=== PATIENT | male | born 1945 | race Caucasian/White ===

== ENCOUNTER 2020-03-27 10:14 | Emergency (ER) | payer OTHER ==
--- NOTE | 2020-03-27 10:44 | ERPHSYRPT ---
- History of Present Illness Time Seen by Provider: 03/27/20 10:50 Source: patient Exam Limitations: no limitations Physician History: Patient is a 74-year-old male presents to our ED with complaints of pain to the plantar surface of his right foot. Symptoms started approximately 10 days ago. Patient also discoloration of his toes. Patient also experiences pain at night while resting. Pain worse with weightbearing. No trauma. No fever. Patient is a smoker. Symptoms are progressive. Symptoms are mild to moderate intensity. Patient voices no other complaints or concerns at this time. Method of Injury: unknown Occurred: days ago Quality: constant Severity of Pain-Max: moderate Severity of Pain-Current: mild Lower Extremities Pain: foot: right Modifying Factors: Improves With: movement, rest Associated Symptoms: none Allergies/Adverse Reactions: nicotine Allergy (Verified 03/27/20 10:58) Home Medications: Unobtainable 03/27/20 [History] - Review of Systems Constitutional: No Symptoms, No Fever, No Chills Eyes: No Symptoms Ears, Nose, & Throat: No Symptoms Respiratory: No Symptoms, No Cough, No Dyspnea Cardiac: No Symptoms, No Chest Pain, No Edema, No Syncope Abdominal/Gastrointestinal: No Symptoms, No Abdominal Pain, No Nausea, No Vomiting, No Diarrhea Genitourinary Symptoms: No Symptoms, No Dysuria Musculoskeletal: No Symptoms, No Back Pain, No Neck Pain Skin: No Symptoms, No Rash Neurological: No Symptoms, No Dizziness, No Focal Weakness, No Sensory Changes Psychological: No Symptoms Endocrine: No Symptoms Immunological/Allergic: No Symptoms All Other Systems: Reviewed and Negative - Past Medical History Neurological History: No Pertinent History Cardiac History: Hypertension Respiratory History: COPD Endocrine Medical History: No Pertinent History Musculoskeletal History: Arthritis - Nursing Vital Signs Nursing Vital Signs: Initial Vital Signs O2 Sat by Pulse Oximetry 98 03/27/20 10:44 Pain Scale Pain Intensity 3 - Physical Exam General Appearance: no apparent distress, alert Eyes, Ears, Nose, Throat Exam: moist mucous membranes Neck Exam: non-tender, supple Cardiovascular/Respiratory Exam: chest non-tender, normal breath sounds, regular rate/rhythm, no respiratory distress Gastrointestinal/Abdominal Exam: non-tender, guarding Back Exam: normal inspection, No vertebral tenderness Hips Exam: bilateral: non-tender, normal inspection, normal range of motion Legs Exam: bilateral leg: non-tender, normal inspection, normal range of motion, no evidence of injury Knees Exam: bilateral knee: non-tender, normal inspection, normal range of motion, no evidence of injury Ankle Exam: bilateral ankle: non-tender, normal inspection, normal range of motion, no evidence of injury Foot Exam: right foot: pain (Right foot has cyanotic toes at toe #1 3 and 4. There are purpuric areas of the dorsum and lateral borders of the foot as well.), left foot: non-tender, normal inspection, normal range of motion, no evidence of injury Neuro/Tendon Exam: normal sensation, normal motor functions Mental Status Exam: alert, oriented x 3, cooperative Skin Exam: normal color, warm, dry, other (Right foot has cyanotic discoloration of digits 1, 3, 4,. There are patchy areas of purpura at the dorsum and lateral borders of the foot.) SpO2 Interpretation: normal SpO2: 98 O2 Delivery: Room Air - Course Nursing assessment & vital signs reviewed: Yes - Radiology Exams Foot X-ray Interpretation: Teleradiologist Report (Chronic degenerative changes. No fractures or dislocations.) - Radiology Ultrasound Exam Venous Lower Extremity Ultrasound: discussed w/radiologist (Per dragline engineer patient has no DVT. However there is significant calcification of the femoral artery.) Ordered Tests: Active Orders 24 hr Category Date Time Status IV Insertion STAT Care 03/27/20 10:36 Active FOOT (MINIMUM 3 VIEWS) Stat Exams 03/27/20 10:34 Taken VENOUS UNILAT/LIMITED EXTREMIT [US] Stat Exams 03/27/20 10:35 Taken CBC W DIFF Stat Lab 03/27/20 10:47 Received CK (IN-HOUSE) [CK-Creatinine Phosphokinase] Stat Lab 03/27/20 10:47 Completed Lactic Acid Stat Lab 03/27/20 10:36 Ordered UA W/RFX UR CULTURE Stat Lab 03/27/20 10:37 Uncollected Lab/Rad Data: Laboratory Results 03/27/20 Range/Units 10:47 Creatine Kinase 56 (55-170) U/L - Progress Progress: improved Discussed with : Other (Accepts transfer.) Counseled pt/family regarding: lab results, diagnosis, need for follow-up, rad results, smoking cessation - Departure Departure Disposition: Transfer, Extended Care Facility Clinical Impression: Arterial insufficiency, Ischemic toe Critical Care Time: No Critical Care Time(excluding separately billable procedures): Critical 75-104 mins Referrals: HOSPITAL,'[facility] [Primary Care Provider] -
[2020-03-27 11:09] LABS: Absolute Neutrophil Ct (ANC) 2.93 (1.4-6.9); BASOPHIL % 0.4 % (0.0-0.4); Basophil (Absolute #) 0.02 (0-0.4); Eosinophil % 2.4 % (0.00-5.0); Eosinophil (Absolute #) 0.13 (0-0.5); Hematocrit 42.5 % (42-50); Hemoglobin 14.3 gm/dl (12.5-18.0); Lymphocytes % 38.2 % (24.0-44.0); Mean Cell Volume 97.9 fl (78-100); Mean Corpuscular Hemoglobin 32.9 pg (26-32); Mean Corpuscular Hgb Concent. 33.6 g/dl (32-36); Mean Platelet Volume 10.6 fl (7.5-11.0); Monocyte (Absolute #) 0.32 (0.0-1.3); Monocytes % 5.8 % (0.0-12.0); Neutrophil % 53.2 % (36.0-66.0); Platelet Count 273 K/mm3 (150-450); Red Blood Count 4.34 M/mm3 (4.1-5.6); Red Cell Distribution Width 13.4 % (11.5-14.0); White Blood Count 5.5 K/mm3 (4.0-10.5)
[2020-03-27 11:29] VITALS: O2SAT 98
--- NOTE | 2020-03-27 11:35 | XRAY ---
Indication: Purple toes. Cold to touch. Comparison: None 3 nonweightbearing views right foot obtained. No bony, articular, or soft tissue abnormalities.
--- NOTE | 2020-03-27 11:37 | XRAY ---
Indication: Purple toes. Cold to touch. Two-dimensional sonogram and color Doppler imaging of the major venous vessels of the right leg was performed. Comparison: None No thrombus seen in the examined deep venous vessels of the right leg including greater saphenous vein. Veins demonstrate normal compressibility. Venous waveforms are normal with and without augmentation. Incidental moderate scattered arteriosclerotic disease in the common femoral artery. Impression: 1. Right leg negative for DVT. 2. Incidental common femoral arteriosclerotic disease.
[2020-03-27 11:50] VITALS: BP 137/74; PULSE 83
== END 2020-03-27 12:48 ==
LOC: ED 10:14
DX: I77.1 Stricture of artery (principal); M62.272 Nontraumatic ischemic infarction of muscle, left ankle and foot; I10 Essential (primary) hypertension; J44.9 Chronic obstructive pulmonary disease, unspecified; M19.90 Unspecified osteoarthritis, unspecified site
CPT/HCPCS: 36000; 36415; 73630; 82550; 83605; 85025; 93971; 99284; 99291; 99292

== ENCOUNTER 2022-05-13 15:40 | Day surgery (SDC) | payer OTHER ==
[~2022-05-13 15:40] MED LIST: Lactated Ringers 1,000 ML IV ONE
[2022-05-13] MEDS ORDERED: Depo-Medrol 40 MG/ML IM ONE (15:41)
[2022-05-13] MEDS ORDERED: LIDOCAINE HCL 2% 100 MG/5 ML IJ ONE (15:41)
[2022-05-13] MEDS ORDERED: DIPRIVAN 200 MG/20 ML IV ONE (16:50)
--- NOTE | 2022-05-13 18:04 | XRAY ---
Indication: Bilateral SI joint injection. Intraoperative fluoroscopy provided for 16 seconds. 3 digital spot image submitted for interpretation demonstrates posterior needle tip projecting over the expected left and right SI joints. Correlate with intraoperative findings/report.
--- NOTE | 2022-05-14 11:59 | XRAY ---
16 seconds of fluoroscopy was used in surgery for bilateral SI joint injections.
== END 2022-05-13 17:20 | disposition home or self-care (01) ==
LOC: SDC-PAIN 15:40
PROVIDERS: ATTEND Psychiatry & Neurology Pain Medicine
DX: M46.1 Sacroiliitis, not elsewhere classified (principal); Z79.899 Other long term (current) drug therapy
CPT/HCPCS: 27096; 72202; 77002; G0260; 99100; J1030; J2704

== ENCOUNTER 2022-08-31 10:26 | Observation (INO) | payer OTHER ==
[2022-08-31] MEDS ORDERED: solu-MEDROL 125 MG, Sterile H2O 10 ml 2 ML IV ONE ×2 (10:54)
[2022-08-31] MEDS ORDERED: DUONEB 0.5-3 MG/3 ml Neb IH ONE ×2 (10:55→11:00)
[2022-08-31] MEDS ORDERED: ROCEPHIN 2 Gm-D5w 50ML BAG** 2 G/50 ML IVPB IV STA (10:57)
[2022-08-31] MEDS ORDERED: Zithromax 500 MG/ 250 ML NaCl Premix 500 MG/250 ML IVPB IV STA (10:57)
[2022-08-31] MEDS ORDERED: Sterile H2O 10 ml IJ ONE ×2 (10:59→21:05)
[2022-08-31] MEDS ORDERED: solu-MEDROL ONE ×2 (10:59→21:04)
--- NOTE | 2022-08-31 11:19 | ERPHSYRPT ---
- History of Present Illness Time Seen by Provider: 08/31/22 10:40 Source: patient Exam Limitations: no limitations Patient Subjective Stated Complaint: cough, shortness of breath, no appetite, sore throat x 9-10 days. Triage Nursing Assessment: . Physician History: 76-year-old male presents to our ED for evaluation of cough shortness of breath and sore throat for approximately 9 to 10 days. Patient states he was hypoxic at home at 88% on room air. Symptoms are getting progressively worse. [facility]. Patient has a long history of smoking. No chest pain. No nausea vomiting or diaphoresis. No fever. No diarrhea. No rash. Symptoms are progressive. Symptoms are moderate in intensity. No specific worsening improving factors. [facility] and [facility] instructed him to come to [facility] nearest emergency department for evaluation. Patient voices no other complaints or concerns at this time. Portions of this note were created with voice recognition technology. There may be grammatical, spelling, punctuation or sound alike errors Timing/Duration: day(s) (9 to 10 days) Activities at Onset: none Severity of Dyspnea-Max: moderate Severity of Dyspnea-Current: mild Possible Cause: occasional episodes Modifying Factors: Improves With: coughing Associated Symptoms: cough, wheezing, No chest pain/discomfort, No fever, No lightheadedness, No dizziness, No painful breathing, No tightness Allergies/Adverse Reactions: nicotine Allergy (Verified 03/27/20 10:58) Home Medications: Unobtainable 03/27/20 [History] Hx Influenza Vaccination/Date Given: Yes Hx Pneumococcal Vaccination/Date Given: Yes Travel Risk - International Travel Have you traveled outside of the country in past 3 weeks: No - Coronavirus Screening Are you exhibiting any of the following symptoms?: Yes Symptoms: Cough: New Onset, Shortness of Breath Close contact with a COVID-19 positive Pt in past 14-21 Days: No - Vaccine Status Have you recieved a Covid-19 vaccination: Yes 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: [employer] - Vaccination Dates Date of 2cond Vaccination (if applicable): 2020 - Review of Systems Constitutional: No Symptoms, No Fever, No Chills Eyes: No Symptoms Ears, Nose, & Throat: No Symptoms Respiratory: No Symptoms, No Cough, No Dyspnea Cardiac: No Symptoms, No Chest Pain, No Edema, No Syncope Abdominal/Gastrointestinal: No Symptoms, No Abdominal Pain, No Nausea, No Vomiting, No Diarrhea Genitourinary Symptoms: No Symptoms, No Dysuria Musculoskeletal: No Symptoms, No Back Pain, No Neck Pain Skin: No Symptoms, No Rash Neurological: No Symptoms, No Dizziness, No Focal Weakness, No Sensory Changes Psychological: No Symptoms Endocrine: No Symptoms Hematologic/Lymphatic: No Symptoms Immunological/Allergic: No Symptoms All Other Systems: Reviewed and Negative - Past Medical History Pertinent Past Medical History: Yes Neurological History: No Pertinent History Cardiac History: Hypertension Respiratory History: COPD Endocrine Medical History: No Pertinent History Musculoskeletal History: Arthritis GI Medical History: GERD - Past Surgical History Past Surgical History: Yes - Social History Smoking Status: Current every day smoker Exposure to second hand smoke: Yes Drug Use: none Patient Lives Alone: Yes - Nursing Vital Signs Nursing Vital Signs: Initial Vital Signs Temperature 97.3 F 08/31/22 10:27 Pulse Rate 77 08/31/22 10:27 Respiratory Rate 18 08/31/22 10:27 Blood Pressure 160/89 08/31/22 10:27 O2 Sat by Pulse Oximetry 97 08/31/22 10:27 Pain Scale Pain Intensity 0 - Physical Exam General Appearance: no apparent distress, alert Eye Exam: PERRL/EOMI Neck Exam: normal inspection, supple Respiratory Exam: diminished breath sounds, rhonchi, wheezing, other (Mild use of accessory respiratory musculature), No respiratory distress Cardiovascular/Chest Exam: normal heart sounds, regular rate/rhythm Abdominal/Gastrointestinal Exam: soft, No tenderness, No distention, No mass Extremity Exam: non-tender, normal range of motion, normal inspection, no calf tenderness, no pedal edema Neurologic Exam: alert, oriented x 3, cooperative, medical lab assistant II-XII nml as tested, sensation nml, No motor deficits Skin Exam: normal color, warm, No dry SpO2 Interpretation: normal SpO2: 98 O2 Delivery: Room Air - Course Nursing assessment & vital signs reviewed: Yes EKG Interpreted by Me: RATE (62), Sinus Rhythm, Left Manito Deviation, NORMAL INTERVALS - Radiology Exams Chest X-ray Interpretation: Teleradiologist Report (Normal heart lungs and bony thorax . No acute findings) Ordered Tests: Active Orders 24 hr Category Date Time Status Facsimile Machine Operator STAT Care 08/31/22 10:53 Active EKG-ER Only STAT Care 08/31/22 10:52 Active IV Insertion STAT Care 08/31/22 10:52 Active Pulse Oximetry (ED) STAT Care 08/31/22 10:52 Active CHEST 1 VIEW (PORTABLE) Stat Exams 08/31/22 10:53 Completed BLOOD CULTURE Stat Lab 08/31/22 11:05 Received CBC W DIFF Stat Lab 08/31/22 10:52 Completed CMP Stat Lab 08/31/22 11:10 Completed NT PRO BNP Stat Lab 08/31/22 11:10 Completed TROPONIN Q4H Lab 08/31/22 11:10 Completed TROPONIN Q4H Lab 08/31/22 15:00 Ordered TROPONIN Q4H Lab 08/31/22 19:00 Ordered Respiratory Therapy Assessment DAILY RT 08/31/22 11:07 Completed Transfer Order Routine Transfer 08/31/22 Ordered Medication Summary Discontinued Medications Generic Name Dose Route Start Last Admin Trade Name Freq PRN Reason Stop Dose Admin Albuterol Sulfate 2.5 mg 08/31/22 12:43 08/31/22 12:45 Albuterol Sulfate 2.5 Mg/3 Ml Neb IH 08/31/22 12:44 2.5 mg STAT ONE Administration Albuterol Sulfate Confirm 08/31/22 12:44 Albuterol Sulfate 2.5 Mg/3 Ml Neb Administered 08/31/22 12:45 Dose 2.5 mg IH .STK-MED ONE Albuterol/Ipratropium 3 ml 08/31/22 10:55 08/31/22 11:03 Ipratropium/Albuterol Sulfate 3 Ml Ampul.Neb IH 08/31/22 10:56 3 ml STAT ONE Administration Albuterol/Ipratropium Confirm 08/31/22 11:00 Ipratropium/Albuterol Sulfate 3 Ml Ampul.Neb Administered 08/31/22 11:01 Dose 3 ml IH .STK-MED ONE Methylprednisolone Sodium 0 mg 08/31/22 10:54 08/31/22 11:16 Succinate 125 mg/ Sterile IV 08/31/22 10:55 125 mg Water 2 ml STAT ONE Administration Ceftriaxone Sodium/Dextrose 2 g in 50 mls @ 100 mls/hr 08/31/22 10:57 08/31/22 12:32 Rocephin 2 Gm-D5w 50ml Bag IV 08/31/22 11:26 Infused STAT STA Infusion Azithromycin 500 mg in 250 mls @ 250 mls/hr 08/31/22 10:57 08/31/22 12:33 Zithromax 500 Mg/ 250 Ml Nacl Premix IV 08/31/22 11:56 250 mls/hr STAT STA 250 mls/hr Administration Azithromycin Confirm 08/31/22 11:22 Zithromax 500 Mg/ 250 Ml Nacl Premix Administered 08/31/22 11:23 Dose 500 mg in 250 mls @ ud IV .STK-MED ONE Ceftriaxone Sodium/Dextrose Confirm 08/31/22 11:22 Rocephin 2 Gm-D5w 50ml Bag Administered 08/31/22 11:23 Dose 2 g in 50 mls @ ud IV .STK-MED ONE Methylprednisolone Sodium Succinate Confirm 08/31/22 10:59 Methylprednis Sod Succ 125 Mg/2 Ml Vial Administered 08/31/22 11:00 Dose 125 mg .ROUTE .STK-MED ONE Sterile Water Confirm 08/31/22 10:59 Water For Injection,Sterile 10 Ml Vial Administered 08/31/22 11:00 Dose 10 ml IJ .STK-MED ONE Lab/Rad Data: Laboratory Result Diagrams 08/31/22 10:52 08/31/22 11:10 Laboratory Results 08/31/22 08/31/22 08/31/22 Range/Units 11:10 11:10 11:10 WBC (4.0-10.5) x10^3/uL RBC (4.1-5.6) x10^6/uL Hgb (12.5-18.0) g/dL Hct (42-50) % MCV (78-100) fL MCH (26-32) pg MCHC (32-36) g/dL RDW (11.5-14.0) % Plt Count (150-450) x10^3/uL MPV (7.5-11.0) fL Gran % (36.0-66.0) % Immature Gran % (Auto) (0.00-0.4) % Nucleat RBC Rel Count (0.00-0.1) % Eos # (Auto) (0-0.5) x10^3/uL Immature Gran # (Auto) (0.00-0.03) x10^3u/L Absolute Lymphs (auto) (1.0-4.6) x10^3/uL Absolute Monos (auto) (0.0-1.3) x10^3/uL Absolute Nucleated RBC (0.00-0.01) x10^3u/L Lymphocytes % (24.0-44.0) % Monocytes % (0.0-12.0) % Eosinophils % (0.00-5.0) % Basophils % (0.0-0.4) % Absolute Granulocytes (1.4-6.9) x10^3/uL Basophils # (0-0.4) x10^3/uL Sodium 138 (137-145) mmol/L Potassium 4.3 (3.5-5.1) mmol/L Chloride 108 H (98-107) mmol/L Carbon Dioxide 24 (22-30) mmol/L Anion Gap 9.2 (5-15) MEQ/L BUN 27 H (9-20) mg/dL Creatinine 0.83 (0.66-1.25) mg/dL Estimated GFR > 60.0 ML/MIN Glucose 113 H (74-106) mg/dL Calcium 9.3 (8.4-10.2) mg/dL Total Bilirubin 0.80 (0.2-1.3) mg/dL AST 26 (17-59) U/L ALT 27 (0-50) U/L Alkaline Phosphatase 111 (38-126) U/L Troponin I < 0.012 (0.000-0.034) ng/mL NT-Pro-B Natriuret Pep 276 (0-900) pg/mL Serum Total Protein 7.0 (6.3-8.2) g/dL Albumin 4.2 (3.5-5.0) g/dL Influenza Type A Ag NEGATIVE (NEGATIVE) Influenza Type B Ag NEGATIVE (NEGATIVE) RSV (PCR) NEGATIVE (Negative) SARS-CoV-2 (PCR) NEGATIVE (NEGATIVE) 08/31/22 Range/Units 10:52 WBC 5.9 (4.0-10.5) x10^3/uL RBC 4.18 (4.1-5.6) x10^6/uL Hgb 13.7 (12.5-18.0) g/dL Hct 41.0 L (42-50) % MCV 98.1 (78-100) fL MCH 32.8 H (26-32) pg MCHC 33.4 (32-36) g/dL RDW 12.5 (11.5-14.0) % Plt Count 305 (150-450) x10^3/uL MPV 10.4 (7.5-11.0) fL Gran % 58.9 (36.0-66.0) % Immature Gran % (Auto) 0.5 H (0.00-0.4) % Nucleat RBC Rel Count 0.0 (0.00-0.1) % Eos # (Auto) 0.18 (0-0.5) x10^3/uL Immature Gran # (Auto) 0.03 (0.00-0.03) x10^3u/L Absolute Lymphs (auto) 1.68 (1.0-4.6) x10^3/uL Absolute Monos (auto) 0.50 (0.0-1.3) x10^3/uL Absolute Nucleated RBC 0.00 (0.00-0.01) x10^3u/L Lymphocytes % 28.7 (24.0-44.0) % Monocytes % 8.5 (0.0-12.0) % Eosinophils % 3.1 (0.00-5.0) % Basophils % 0.3 (0.0-0.4) % Absolute Granulocytes 3.45 (1.4-6.9) x10^3/uL Basophils # 0.02 (0-0.4) x10^3/uL Sodium (137-145) mmol/L Potassium (3.5-5.1) mmol/L Chloride (98-107) mmol/L Carbon Dioxide (22-30) mmol/L Anion Gap (5-15) MEQ/L BUN (9-20) mg/dL Creatinine (0.66-1.25) mg/dL Estimated GFR ML/MIN Glucose (74-106) mg/dL Calcium (8.4-10.2) mg/dL Total Bilirubin (0.2-1.3) mg/dL AST (17-59) U/L ALT (0-50) U/L Alkaline Phosphatase (38-126) U/L Troponin I (0.000-0.034) ng/mL NT-Pro-B Natriuret Pep (0-900) pg/mL Serum Total Protein (6.3-8.2) g/dL Albumin (3.5-5.0) g/dL Influenza Type A Ag (NEGATIVE) Influenza Type B Ag (NEGATIVE) RSV (PCR) (Negative) SARS-CoV-2 (PCR) (NEGATIVE) - Progress Progress: improved Air Movement: good Progress Note: Patient reassessed. Symptoms improved. However not resolved. Patient will require admission for further evaluation and treatment. We contacted the [facility]. They gave us the approval to admit patient to our ED. Plan of care discussed with patient. He agrees to admission [facility] for further evaluation and treatment. Case discussed with Dr. Barnes who excepts admission to observation. Patient voices no other complaints or concerns at this time. Portions of this note were created with voice recognition technology. There may be grammatical, spelling, punctuation or sound alike errors 08/31/22 13:01 Blood Culture(s) Obtained: Yes Antibiotics given: Yes Discussed with DrLuis Miguel: Huma Will see patient in: hospital (observation) Counseled pt/family regarding: lab results, diagnosis, rad results - Departure Departure Disposition: Observation Clinical Impression: COPD exacerbation, Shortness of breath Condition: Stable Critical Care Time: No Referrals: [facility]OSP[facility],'[facility] [Primary Care Provider] - Follow up/PCP as directed Instructions: Chronic Obstructive Pulmonary Disease
[2022-08-31 11:20] LABS: Absolute Neutrophil Ct (ANC) 3.45 x10^3/uL (1.4-6.9); Basophil (Absolute #) 0.02 x10^3/uL (0-0.4); Eosinophil % 3.1 % (0.00-5.0); Eosinophil (Absolute #) 0.18 x10^3/uL (0-0.5); Hemoglobin 13.7 g/dL (12.5-18.0); Lymphocyte (Absolute #) 1.68 x10^3/uL (1.0-4.6); Lymphocytes % 28.7 % (24.0-44.0); Mean Cell Volume 98.1 fL (78-100); Mean Corpuscular Hemoglobin 32.8 pg (26-32); Mean Corpuscular Hgb Concent. 33.4 g/dL (32-36); Mean Platelet Volume 10.4 fL (7.5-11.0); Monocytes % 8.5 % (0.0-12.0); Neutrophil % 58.9 % (36.0-66.0); Platelet Count 305 x10^3/uL (150-450); Red Blood Count 4.18 x10^6/uL (4.1-5.6); Red Cell Distribution Width 12.5 % (11.5-14.0); White Blood Count 5.9 x10^3/uL (4.0-10.5)
[2022-08-31] MEDS ORDERED: ROCEPHIN 2 Gm-D5w 50ML BAG** 2 G/50 ML IVPB IV ONE (11:22)
[2022-08-31] MEDS ORDERED: Zithromax 500 MG/ 250 ML NaCl Premix 500 MG/250 ML IVPB IV ONE (11:22)
[2022-08-31 11:35] LABS: ALBUMIN 4.2 g/dL (3.5-5.0); ALKALINE PHOSPHATASE 111 U/L (38-126); ANION GAP 9.2 MEQ/L (5-15); BLOOD UREA NITROGEN 27 mg/dL (9-20); CHLORIDE 108 mmol/L (98-107); Calcium 9.3 mg/dL (8.4-10.2); Carbon Dioxide 24 mmol/L (22-30); Creatinine 1 0.83 mg/dL (0.66-1.25); EST GLOMERULAR FILTRATION RATE > 60.0 ML/MIN; Glucose 113 mg/dL (74-106); NT PRO BNP 276 pg/mL (0-900); Potassium 4.3 mmol/L (3.5-5.1); SGOT/AST 26 U/L (17-59); SGPT/ALT 27 U/L (0-50); SODIUM 138 mmol/L (137-145)
--- NOTE | 2022-08-31 11:44 | XRAY ---
Indication: Short of breath. Cough. Comparison: None Portal chest images normal heart and lungs. Bony thorax intact with incidental mild degenerative changes and old left clavicle fracture.
[2022-08-31 11:58] LABS: INFLUENZA A NEGATIVE (NEGATIVE); INFLUENZA B NEGATIVE (NEGATIVE); RESPIRATORY SYNCTIAL VIRUS NEGATIVE (Negative); SARS-CoV-2 Xpert Express NEGATIVE (NEGATIVE)
[2022-08-31] MEDS ORDERED: PROVENTIL 2.5 MG/3 ML NEB IH ONE ×2 (12:43→12:44)
[2022-08-31] MEDS: Sodium Chloride 3 ML UD NEBULES IH SCH ×3 (15:05→22:56)
[2022-08-31] MEDS: Xopenex 1.25 MG/0.5 ML UD NEBULE IH SCH ×3 (15:05→22:56)
[2022-08-31] MEDS ORDERED: TYLENOL EXTRA STRENGTH 500 MG PO PRN (20:05)
[2022-08-31] MEDS ORDERED: NORCO 5/325 MG PO PRN ×2 (20:05→21:32)
[2022-08-31] MEDS: LYRICA 75 MG CAP PO SCH (21:23)
[2022-08-31] MEDS: solu-MEDROL 40 MG, Sterile H2O 10 ml 1 ML IV SCH ×2 (21:23)
[2022-08-31] MEDS ORDERED: ZOCOR 20MG PO ONE (22:00)
[2022-09-01] MEDS: Xopenex 1.25 MG/0.5 ML UD NEBULE IH SCH ×3 (03:18→11:09)
[2022-09-01] MEDS: Sodium Chloride 3 ML UD NEBULES IH SCH ×3 (03:18→11:10)
[2022-09-01 05:24] LABS: ALBUMIN 4.1 g/dL (3.5-5.0); ALKALINE PHOSPHATASE 95 U/L (38-126); ANION GAP 11.3 MEQ/L (5-15); BLOOD UREA NITROGEN 25 mg/dL (9-20); CHLORIDE 106 mmol/L (98-107); Calcium 9.2 mg/dL (8.4-10.2); Carbon Dioxide 23 mmol/L (22-30); Creatinine 1 0.86 mg/dL (0.66-1.25); EST GLOMERULAR FILTRATION RATE > 60.0 ML/MIN; Glucose 169 mg/dL (74-106); Potassium 3.9 mmol/L (3.5-5.1); SGOT/AST 26 U/L (17-59); SGPT/ALT 27 U/L (0-50); SODIUM 137 mmol/L (137-145); Total Protein 7.2 g/dL (6.3-8.2)
--- NOTE | 2022-09-01 08:54 | PCM.SSS ---
History of Present Illness - Chief Complaint Chief Complaint: COPD EXACERBATION History of Present Illness: is a 76 year old male pt of the [place] with no local MD, hx COPD, HTN, hyperlipidemia, GERD who was admitted through ER with COPD exacerbation. He was sick x 9-10d with cough; afebrile. Home covid test neg.- O2 88-92%. He worsened; sides hurt with cough (nonproductive) and not eating much po. Was using nebs q4h at home. In ER, WBC 5.9, eGFR nl. Tropn neg. Covid/flu neg. CXR nonacute. Pt was started on iv antibiotics and steroids. Feeling better this morning and would like to go home today. - Review of Systems Respiratory: Cough, Short Of Breath Abdominal/Gastrointestinal: Abdominal Pain (with cough) Neurological: Dizziness (with cough) Medications & Allergies Home Medications: Home Medication List Acetaminophen [Tylenol Extra Strength] 1,000 mg PO Q8HPRN PRN 08/31/22 [History Confirmed 08/31/22] Aspirin EC 81 mg [Ecotrin 81 mg] 81 mg PO DAILY 08/31/22 [History Confirmed 08/31/22] Atorvastatin Calcium 80 mg PO HS 08/31/22 [History Confirmed 08/31/22] Cetirizine HCl [All Day Allergy Relief] 10 mg PO DAILY 08/31/22 [History Confirmed 08/31/22] Cholecalciferol (Vitamin D3) [Vitamin D] 1,000 unit PO DAILY 08/31/22 [History Confirmed 08/31/22] Diltiazem HCl [Diltiazem 24Hr ER] 240 mg PO DAILY 08/31/22 [History Confirmed 08/31/22] Ferrous Sulfate 324 mg PO BIDWM 08/31/22 [History Confirmed 08/31/22] Hydrocodone/Acetaminophen [Hydrocodone-Acetamin 5-325 mg] 1 tab PO Q6HPRN PRN MDD 4 08/31/22 [History Confirmed 08/31/22] Omeprazole 20 mg PO DAILY 08/31/22 [History Confirmed 08/31/22] Pregabalin [Lyrica] 75 mg PO BID 08/31/22 [History Confirmed 08/31/22] Vitamin A 1,000 unit PO DAILY 08/31/22 [History Confirmed 08/31/22] Cefdinir 300 mg PO BID #12 cap 09/01/22 [Rx] Lactobacillus Acidophilus [Acidophilus TABLET] 1 tab PO BID 10 Days #20 tablet 09/01/22 [Rx] Prednisone 20 mg [Deltasone 20 mg] 20 mg PO DAILY 7 Days #17 tablet 09/01/22 [Rx] Allergies/Adverse Reactions: Allergies Allergy/AdvReac Type Severity Reaction Status Date / Time morphine AdvReac Intermediate Nausea and Verified 08/31/22 14:46 Vomiting - Past Medical History Past Medical History: Yes Neurological History: No Pertinent History ENT History: Other Cardiac History: Hypertension Respiratory History: COPD Endocrine Medical History: No Pertinent History Musculoskelatal History: No Pertinent History GI Medical History: GERD History: No Pertinent History Pyscho-Social History: No Pertinent History Male Reproductive Disorders: No Pertinent History - Past Surgical History Past Surgical History: Yes Cardiac History: No Pertinent History Respiratory Surgery: No Pertinent History GI Surgical History: No Pertinent History Genitourinary Surgical Hx: No Pertinent History Musculskeletal Surgical Hx: No Pertinent History Male Surgical History: No Pertinent History Other Surgical History: carpal tunnel, femoral artery opening, right ankle fx - Social History Smoking Status: Former smoker Exposure to second hand smoke: Yes Alcohol: Occasionally Drug Use: none - Physical Exam Vital Signs: Vital Signs - 24 hr Temp Pulse Resp BP Pulse Ox 09/01/22 07:23 97.7 F 63 16 120/61 95 09/01/22 07:16 60 20 94 L 09/01/22 04:00 98.2 F 74 20 130/62 92 L 09/01/22 03:18 75 22 95 08/31/22 23:16 97.5 F 78 23 139/61 94 L 08/31/22 22:57 74 18 94 L 08/31/22 18:53 97.5 F 86 22 130/69 93 L 08/31/22 18:29 86 22 93 L 08/31/22 16:00 98.7 F 78 22 121/58 92 L 08/31/22 15:08 83 18 92 L 08/31/22 14:29 97.1 F 76 22 120/58 93 L 08/31/22 13:55 76 22 93 L 08/31/22 13:02 98 08/31/22 13:00 97.1 F 79 20 120/58 95 08/31/22 12:50 69 18 113/74 94 L 08/31/22 12:45 63 16 96 08/31/22 11:37 65 16 128/69 99 08/31/22 11:07 64 18 96 08/31/22 10:56 98 08/31/22 10:27 97.3 F 77 18 160/89 99 General Appearance: no apparent distress, alert Neurologic Exam: oriented x 3, cooperative Eye Exam: eyes nml inspection Ears, Nose, Throat Exam: moist mucous membranes Neck Exam: normal inspection, non-tender, No lymphadenopathy, No thyromegaly Respiratory Exam: diminished breath sounds (good air exchange), No respiratory distress, No crackles/rales, No rhonchi, No wheezing Cardiovascular Exam: regular rate/rhythm, normal heart sounds, No murmur Gastrointestinal/Abdomen Exam: soft, normal bowel sounds, No tenderness, No distention, No mass, No guarding, No rebound Extremity Exam: normal inspection, swelling (trace pretibial edema on R) Skin Exam: normal color, warm, dry, No rash Results - Labs Lab/Micro Results: Lab Results-Last 24 Hours 08/31/22 08/31/22 08/31/22 Range/Units 10:52 11:10 11:10 WBC 5.9 (4.0-10.5) x10^3/uL RBC 4.18 (4.1-5.6) x10^6/uL Hgb 13.7 (12.5-18.0) g/dL Hct 41.0 L (42-50) % MCV 98.1 (78-100) fL MCH 32.8 H (26-32) pg MCHC 33.4 (32-36) g/dL RDW 12.5 (11.5-14.0) % Plt Count 305 (150-450) x10^3/uL MPV 10.4 (7.5-11.0) fL Gran % 58.9 (36.0-66.0) % Immature Gran % (Auto) 0.5 H (0.00-0.4) % Nucleat RBC Rel Count 0.0 (0.00-0.1) % Eos # (Auto) 0.18 (0-0.5) x10^3/uL Immature Gran # (Auto) 0.03 (0.00-0.03) x10^3u/L Absolute Lymphs (auto) 1.68 (1.0-4.6) x10^3/uL Absolute Monos (auto) 0.50 (0.0-1.3) x10^3/uL Absolute Nucleated RBC 0.00 (0.00-0.01) x10^3u/L Lymphocytes % 28.7 (24.0-44.0) % Monocytes % 8.5 (0.0-12.0) % Eosinophils % 3.1 (0.00-5.0) % Basophils % 0.3 (0.0-0.4) % Absolute Granulocytes 3.45 (1.4-6.9) x10^3/uL Basophils # 0.02 (0-0.4) x10^3/uL Sodium 138 (137-145) mmol/L Potassium 4.3 (3.5-5.1) mmol/L Chloride 108 H (98-107) mmol/L Carbon Dioxide 24 (22-30) mmol/L Anion Gap 9.2 (5-15) MEQ/L BUN 27 H (9-20) mg/dL Creatinine 0.83 (0.66-1.25) mg/dL Estimated GFR > 60.0 ML/MIN Glucose 113 H (74-106) mg/dL Calcium 9.3 (8.4-10.2) mg/dL Total Bilirubin 0.80 (0.2-1.3) mg/dL AST 26 (17-59) U/L ALT 27 (0-50) U/L Alkaline Phosphatase 111 (38-126) U/L Troponin I < 0.012 (0.000-0.034) ng/mL NT-Pro-B Natriuret Pep 276 (0-900) pg/mL Serum Total Protein 7.0 (6.3-8.2) g/dL Albumin 4.2 (3.5-5.0) g/dL Influenza Type A Ag (NEGATIVE) Influenza Type B Ag (NEGATIVE) RSV (PCR) (Negative) SARS-CoV-2 (PCR) (NEGATIVE) 08/31/22 08/31/22 08/31/22 Range/Units 11:10 15:10 19:08 WBC (4.0-10.5) x10^3/uL RBC (4.1-5.6) x10^6/uL Hgb (12.5-18.0) g/dL Hct (42-50) % MCV (78-100) fL MCH (26-32) pg MCHC (32-36) g/dL RDW (11.5-14.0) % Plt Count (150-450) x10^3/uL MPV (7.5-11.0) fL Gran % (36.0-66.0) % Immature Gran % (Auto) (0.00-0.4) % Nucleat RBC Rel Count (0.00-0.1) % Eos # (Auto) (0-0.5) x10^3/uL Immature Gran # (Auto) (0.00-0.03) x10^3u/L Absolute Lymphs (auto) (1.0-4.6) x10^3/uL Absolute Monos (auto) (0.0-1.3) x10^3/uL Absolute Nucleated RBC (0.00-0.01) x10^3u/L Lymphocytes % (24.0-44.0) % Monocytes % (0.0-12.0) % Eosinophils % (0.00-5.0) % Basophils % (0.0-0.4) % Absolute Granulocytes (1.4-6.9) x10^3/uL Basophils # (0-0.4) x10^3/uL Sodium (137-145) mmol/L Potassium (3.5-5.1) mmol/L Chloride (98-107) mmol/L Carbon Dioxide (22-30) mmol/L Anion Gap (5-15) MEQ/L BUN (9-20) mg/dL Creatinine (0.66-1.25) mg/dL Estimated GFR ML/MIN Glucose (74-106) mg/dL Calcium (8.4-10.2) mg/dL Total Bilirubin (0.2-1.3) mg/dL AST (17-59) U/L ALT (0-50) U/L Alkaline Phosphatase (38-126) U/L Troponin I < 0.012 < 0.012 (0.000-0.034) ng/mL NT-Pro-B Natriuret Pep (0-900) pg/mL Serum Total Protein (6.3-8.2) g/dL Albumin (3.5-5.0) g/dL Influenza Type A Ag NEGATIVE (NEGATIVE) Influenza Type B Ag NEGATIVE (NEGATIVE) RSV (PCR) NEGATIVE (Negative) SARS-CoV-2 (PCR) NEGATIVE (NEGATIVE) 09/01/22 Range/Units 04:20 WBC (4.0-10.5) x10^3/uL RBC (4.1-5.6) x10^6/uL Hgb (12.5-18.0) g/dL Hct (42-50) % MCV (78-100) fL MCH (26-32) pg MCHC (32-36) g/dL RDW (11.5-14.0) % Plt Count (150-450) x10^3/uL MPV (7.5-11.0) fL Gran % (36.0-66.0) % Immature Gran % (Auto) (0.00-0.4) % Nucleat RBC Rel Count (0.00-0.1) % Eos # (Auto) (0-0.5) x10^3/uL Immature Gran # (Auto) (0.00-0.03) x10^3u/L Absolute Lymphs (auto) (1.0-4.6) x10^3/uL Absolute Monos (auto) (0.0-1.3) x10^3/uL Absolute Nucleated RBC (0.00-0.01) x10^3u/L Lymphocytes % (24.0-44.0) % Monocytes % (0.0-12.0) % Eosinophils % (0.00-5.0) % Basophils % (0.0-0.4) % Absolute Granulocytes (1.4-6.9) x10^3/uL Basophils # (0-0.4) x10^3/uL Sodium 137 (137-145) mmol/L Potassium 3.9 (3.5-5.1) mmol/L Chloride 106 (98-107) mmol/L Carbon Dioxide 23 (22-30) mmol/L Anion Gap 11.3 (5-15) MEQ/L BUN 25 H (9-20) mg/dL Creatinine 0.86 (0.66-1.25) mg/dL Estimated GFR > 60.0 ML/MIN Glucose 169 H (74-106) mg/dL Calcium 9.2 (8.4-10.2) mg/dL Total Bilirubin 0.30 (0.2-1.3) mg/dL AST 26 (17-59) U/L ALT 27 (0-50) U/L Alkaline Phosphatase 95 (38-126) U/L Troponin I (0.000-0.034) ng/mL NT-Pro-B Natriuret Pep (0-900) pg/mL Serum Total Protein 7.2 (6.3-8.2) g/dL Albumin 4.1 (3.5-5.0) g/dL Influenza Type A Ag (NEGATIVE) Influenza Type B Ag (NEGATIVE) RSV (PCR) (Negative) SARS-CoV-2 (PCR) (NEGATIVE) - Radiology Impressions Radiology Exams & Impressions: Radiology Procedures Category Date Time Status CHEST 1 VIEW (PORTABLE) Stat Exams 08/31/22 10:53 Completed - Other Procedures and Tests Respiratory Therapy 08/31/22 11:07 Respiratory Therapy Assessment DAILY Assessment/Plan (1) COPD exacerbation Current Visit: Yes Status: Acute Assessment & Plan: Doing better. HOme on cefdinir and prednisone. On room air since admission. Continue nebs q4h prn but at least QID for the next 3-4 d. F/u with PCP in 1 week. return to hosp if worsening. Code(s): J44.1 - CHRONIC OBSTRUCTIVE PULMONARY DISEASE W (ACUTE) EXACERBATION (2) HTN (hypertension) Current Visit: Yes Status: Chronic Qualifiers: Hypertension type: primary hypertension Qualified Code(s): I10 - Essential (primary) hypertension Code(s): I10 - ESSENTIAL (PRIMARY) HYPERTENSION Hospital Summary - Hospital Course Hospital Course: Pt is 76 yo male [place] pt, admitted through ER with COPD exacerbation. CXR non acute. Given IV zithromax and rocephin with IV solumedrol. Feeling much better this morning and exam is benign; he is not on O2. Will send home today around 2 pm if doing well. Home on cefdinir and prednisone, with probiotic. - Vitals & Intake/Output Vital Signs: Vital Signs Temperature 97.7 F 09/01/22 07:23 Pulse Rate 63 09/01/22 07:23 Respiratory Rate 16 09/01/22 07:23 Blood Pressure 120/61 09/01/22 07:23 O2 Sat by Pulse Oximetry 95 09/01/22 07:23 Intake & Output: Intake & Output 08/29/22 08/30/22 08/31/22 09/01/22 11:59 11:59 11:59 11:59 Intake Total 980 Balance 980 Weight 87.09 kg 88 kg - Lab Result Diagrams: 08/31/22 10:52 09/01/22 04:20 Lab Results-Last 24 Hrs: Lab Results-Last 24 Hours 08/31/22 08/31/22 08/31/22 Range/Units 10:52 11:10 11:10 WBC 5.9 (4.0-10.5) x10^3/uL RBC 4.18 (4.1-5.6) x10^6/uL Hgb 13.7 (12.5-18.0) g/dL Hct 41.0 L (42-50) % MCV 98.1 (78-100) fL MCH 32.8 H (26-32) pg MCHC 33.4 (32-36) g/dL RDW 12.5 (11.5-14.0) % Plt Count 305 (150-450) x10^3/uL MPV 10.4 (7.5-11.0) fL Gran % 58.9 (36.0-66.0) % Immature Gran % (Auto) 0.5 H (0.00-0.4) % Nucleat RBC Rel Count 0.0 (0.00-0.1) % Eos # (Auto) 0.18 (0-0.5) x10^3/uL Immature Gran # (Auto) 0.03 (0.00-0.03) x10^3u/L Absolute Lymphs (auto) 1.68 (1.0-4.6) x10^3/uL Absolute Monos (auto) 0.50 (0.0-1.3) x10^3/uL Absolute Nucleated RBC 0.00 (0.00-0.01) x10^3u/L Lymphocytes % 28.7 (24.0-44.0) % Monocytes % 8.5 (0.0-12.0) % Eosinophils % 3.1 (0.00-5.0) % Basophils % 0.3 (0.0-0.4) % Absolute Granulocytes 3.45 (1.4-6.9) x10^3/uL Basophils # 0.02 (0-0.4) x10^3/uL Sodium 138 (137-145) mmol/L Potassium 4.3 (3.5-5.1) mmol/L Chloride 108 H (98-107) mmol/L Carbon Dioxide 24 (22-30) mmol/L Anion Gap 9.2 (5-15) MEQ/L BUN 27 H (9-20) mg/dL Creatinine 0.83 (0.66-1.25) mg/dL Estimated GFR > 60.0 ML/MIN Glucose 113 H (74-106) mg/dL Calcium 9.3 (8.4-10.2) mg/dL Total Bilirubin 0.80 (0.2-1.3) mg/dL AST 26 (17-59) U/L ALT 27 (0-50) U/L Alkaline Phosphatase 111 (38-126) U/L Troponin I < 0.012 (0.000-0.034) ng/mL NT-Pro-B Natriuret Pep 276 (0-900) pg/mL Serum Total Protein 7.0 (6.3-8.2) g/dL Albumin 4.2 (3.5-5.0) g/dL Influenza Type A Ag (NEGATIVE) Influenza Type B Ag (NEGATIVE) RSV (PCR) (Negative) SARS-CoV-2 (PCR) (NEGATIVE) 08/31/22 08/31/22 08/31/22 Range/Units 11:10 15:10 19:08 WBC (4.0-10.5) x10^3/uL RBC (4.1-5.6) x10^6/uL Hgb (12.5-18.0) g/dL Hct (42-50) % MCV (78-100) fL MCH (26-32) pg MCHC (32-36) g/dL RDW (11.5-14.0) % Plt Count (150-450) x10^3/uL MPV (7.5-11.0) fL Gran % (36.0-66.0) % Immature Gran % (Auto) (0.00-0.4) % Nucleat RBC Rel Count (0.00-0.1) % Eos # (Auto) (0-0.5) x10^3/uL Immature Gran # (Auto) (0.00-0.03) x10^3u/L Absolute Lymphs (auto) (1.0-4.6) x10^3/uL Absolute Monos (auto) (0.0-1.3) x10^3/uL Absolute Nucleated RBC (0.00-0.01) x10^3u/L Lymphocytes % (24.0-44.0) % Monocytes % (0.0-12.0) % Eosinophils % (0.00-5.0) % Basophils % (0.0-0.4) % Absolute Granulocytes (1.4-6.9) x10^3/uL Basophils # (0-0.4) x10^3/uL Sodium (137-145) mmol/L Potassium (3.5-5.1) mmol/L Chloride (98-107) mmol/L Carbon Dioxide (22-30) mmol/L Anion Gap (5-15) MEQ/L BUN (9-20) mg/dL Creatinine (0.66-1.25) mg/dL Estimated GFR ML/MIN Glucose (74-106) mg/dL Calcium (8.4-10.2) mg/dL Total Bilirubin (0.2-1.3) mg/dL AST (17-59) U/L ALT (0-50) U/L Alkaline Phosphatase (38-126) U/L Troponin I < 0.012 < 0.012 (0.000-0.034) ng/mL NT-Pro-B Natriuret Pep (0-900) pg/mL Serum Total Protein (6.3-8.2) g/dL Albumin (3.5-5.0) g/dL Influenza Type A Ag NEGATIVE (NEGATIVE) Influenza Type B Ag NEGATIVE (NEGATIVE) RSV (PCR) NEGATIVE (Negative) SARS-CoV-2 (PCR) NEGATIVE (NEGATIVE) 09/01/22 Range/Units 04:20 WBC (4.0-10.5) x10^3/uL RBC (4.1-5.6) x10^6/uL Hgb (12.5-18.0) g/dL Hct (42-50) % MCV (78-100) fL MCH (26-32) pg MCHC (32-36) g/dL RDW (11.5-14.0) % Plt Count (150-450) x10^3/uL MPV (7.5-11.0) fL Gran % (36.0-66.0) % Immature Gran % (Auto) (0.00-0.4) % Nucleat RBC Rel Count (0.00-0.1) % Eos # (Auto) (0-0.5) x10^3/uL Immature Gran # (Auto) (0.00-0.03) x10^3u/L Absolute Lymphs (auto) (1.0-4.6) x10^3/uL Absolute Monos (auto) (0.0-1.3) x10^3/uL Absolute Nucleated RBC (0.00-0.01) x10^3u/L Lymphocytes % (24.0-44.0) % Monocytes % (0.0-12.0) % Eosinophils % (0.00-5.0) % Basophils % (0.0-0.4) % Absolute Granulocytes (1.4-6.9) x10^3/uL Basophils # (0-0.4) x10^3/uL Sodium 137 (137-145) mmol/L Potassium 3.9 (3.5-5.1) mmol/L Chloride 106 (98-107) mmol/L Carbon Dioxide 23 (22-30) mmol/L Anion Gap 11.3 (5-15) MEQ/L BUN 25 H (9-20) mg/dL Creatinine 0.86 (0.66-1.25) mg/dL Estimated GFR > 60.0 ML/MIN Glucose 169 H (74-106) mg/dL Calcium 9.2 (8.4-10.2) mg/dL Total Bilirubin 0.30 (0.2-1.3) mg/dL AST 26 (17-59) U/L ALT 27 (0-50) U/L Alkaline Phosphatase 95 (38-126) U/L Troponin I (0.000-0.034) ng/mL NT-Pro-B Natriuret Pep (0-900) pg/mL Serum Total Protein 7.2 (6.3-8.2) g/dL Albumin 4.1 (3.5-5.0) g/dL Influenza Type A Ag (NEGATIVE) Influenza Type B Ag (NEGATIVE) RSV (PCR) (Negative) SARS-CoV-2 (PCR) (NEGATIVE) - Radiology Exams Ordered Rad Exams-Entire Visit: Radiology Procedures Category Date Time Status CHEST 1 VIEW (PORTABLE) Stat Exams 08/31/22 10:53 Completed - Procedures and Test Procedures and Tests throughout Hospitalization: Therapy Orders & Screens 08/31/22 11:07 Respiratory Therapy Assessment DAILY Comment: - Discharge Disposition: Home, Self-Care Condition: Good Prescriptions: New Lactobacillus Acidophilus [Acidophilus TABLET] 1 tab PO BID 10 Days #20 tablet Cefdinir 300 mg PO BID #12 cap Prednisone 20 mg [Deltasone 20 mg] 20 mg PO DAILY 7 Days #17 tablet Continue Aspirin EC 81 mg [Ecotrin 81 mg] 81 mg PO DAILY Diltiazem HCl [Diltiazem 24Hr ER] 240 mg PO DAILY Cetirizine HCl [All Day Allergy Relief] 10 mg PO DAILY Ferrous Sulfate 324 mg PO BIDWM Vitamin A 1,000 unit PO DAILY Pregabalin [Lyrica] 75 mg PO BID Omeprazole 20 mg PO DAILY Cholecalciferol (Vitamin D3) [Vitamin D] 1,000 unit PO DAILY Acetaminophen [Tylenol Extra Strength] 1,000 mg PO Q8HPRN PRN PRN Reason: Pain Atorvastatin Calcium 80 mg PO HS Hydrocodone/Acetaminophen [Hydrocodone-Acetamin 5-325 mg] 1 tab PO Q6HPRN PRN MDD 4 PRN Reason: Pain Follow up with: HOSPITAL,'S [Primary Care Provider] -
[2022-09-01] MEDS: LYRICA 75 MG CAP PO SCH (09:24)
[2022-09-01] MEDS: solu-MEDROL 40 MG, Sterile H2O 10 ml 1 ML IV SCH ×2 (09:25)
[2022-09-01] MEDS ORDERED: VITAMIN D PO SCH (10:00)
[2022-09-01] MEDS ORDERED: NON-FORMULARY ITEM (Omeprazole [Omeprazole] 20 MG Capsule.Dr) PO SCH (10:00)
[2022-09-01] MEDS ORDERED: Protonix 40MG Tablet PO SCH (10:00)
[2022-09-01] MEDS ORDERED: Cardizem CD PO SCH (10:00)
[2022-09-01] MEDS ORDERED: ROCEPHIN 1 Gm-D5w 50 ml Bag** 1 G/50 ML IVPB IV SCH (10:00)
[2022-09-01] MEDS ORDERED: CLARITIN 10 MG PO SCH (10:00)
[2022-09-01] MEDS ORDERED: NON-FORMULARY ITEM (Diltiazem Hcl [Diltiazem 24hr Er] 240 MG Cap.Sa.24h) PO SCH (10:00)
[2022-09-01] MEDS ORDERED: ECOTRIN 81 MG PO SCH (10:00)
[2022-09-01] MEDS ORDERED: Zithromax 500 MG/ 250 ML NaCl Premix 500 MG/250 ML IVPB IV SCH (10:00)
[2022-09-01] MEDS ORDERED: NON-FORMULARY ITEM (Cetirizine Hcl [All Day Allergy Relief] 10 MG Capsule) PO SCH (10:00)
[2022-09-01 12:06] VITALS: BP 117/66; PULSE 95; O2SAT 97
[2022-09-01] MEDS ORDERED: ZOCOR 20MG PO SCH (22:00)
[2022-09-01] MEDS ORDERED: NON-FORMULARY ITEM (Atorvastatin Calcium [Atorvastatin Calcium] 80 MG Tablet) PO SCH (22:00)
== END 2022-09-01 13:48 | disposition home or self-care (01) ==
LOC: ED 10:26 → MED SURG 13:10
PROVIDERS: ADMIT Family Medicine; ATTEND Family Medicine
DX: J44.1 Chronic obstructive pulmonary disease with (acute) exacerbation (principal); I10 Essential (primary) hypertension; E78.5 Hyperlipidemia, unspecified; Z79.899 Other long term (current) drug therapy; Z20.828 Contact with and (suspected) exposure to other viral communicable diseases
CPT/HCPCS: 0241U; 36000; 36415; 71045; 80053; 83880; 84484; 85025; 87040; 93005; 93041; 94640; 94760; 94762; 96374; 99285; 93268; 96365; 96367; J0456; J0696; J2920; J2930; J7609; A9270-GY; G0378

== ENCOUNTER 2022-09-30 10:44 | Day surgery (SDC) | payer OTHER ==
[2022-09-30] MEDS ORDERED: Depo-Medrol 40 MG/ML IM ONE (10:45)
[2022-09-30] MEDS ORDERED: LIDOCAINE HCL 1% 50 MG/5 ML VL PF IJ ONE (10:45)
[2022-09-30] MEDS ORDERED: BUPIVACAINE 0.5% VIAL IJ ONE (10:45)
[2022-09-30] MEDS ORDERED: DIPRIVAN 200 MG/20 ML IV ONE (12:42)
--- NOTE | 2022-09-30 13:17 | XRAY ---
Indication: Right SI joint RFA. Intraoperative fluoroscopy provided for 34 seconds. 3 digital spot images submitted for interpretation demonstrates 4 posterior needle tips projecting over the right SI joint. Correlate with intraoperative findings/report.
--- NOTE | 2022-09-30 13:45 | XRAY ---
34 seconds of fluoroscopy was used in surgery for a right sacroiliac joint RFA.
[2022-09-30] MEDS ORDERED: Lactated Ringers 1,000 ML IV ONE (14:08)
== END 2022-09-30 13:10 | disposition home or self-care (01) ==
LOC: SDC-PAIN 10:44
PROVIDERS: ATTEND Psychiatry & Neurology Pain Medicine
DX: M47.816 Spondylosis without myelopathy or radiculopathy, lumbar region (principal)
CPT/HCPCS: 64625; 72202; 77002; 99100; J1030; J2001; J2704

== ENCOUNTER 2022-10-07 10:42 | Day surgery (SDC) | payer OTHER ==
[2022-10-07] MEDS ORDERED: BUPIVACAINE 0.5% VIAL IJ ONE (10:43)
[2022-10-07] MEDS ORDERED: Depo-Medrol 40 MG/ML IM ONE (10:43)
[2022-10-07] MEDS ORDERED: LIDOCAINE HCL 1% 50 MG/5 ML VL PF IJ ONE (10:43)
--- NOTE | 2022-10-07 12:50 | XRAY ---
52 seconds of fluoroscopy was used in surgery for a left sacroiliac joint RFA.
--- NOTE | 2022-10-07 12:54 | XRAY ---
Indication: Left SI joint RFA. Intraoperative fluoroscopy provided for 52 seconds. 2 digital spot image submitted for interpretation demonstrates 4 posterior needle tips overlying the left SI joint. Correlate with intraoperative findings/report.
[2022-10-07] MEDS ORDERED: Lactated Ringers 1,000 ML IV ONE (13:28)
== END 2022-10-07 12:20 | disposition home or self-care (01) ==
LOC: SDC-PAIN 10:42
PROVIDERS: ATTEND Psychiatry & Neurology Pain Medicine
DX: M46.1 Sacroiliitis, not elsewhere classified (principal); Z79.899 Other long term (current) drug therapy
CPT/HCPCS: 64625; 72202; 77002; J1030; J2001

== ENCOUNTER 2022-10-28 11:49 | Day surgery (SDC) | payer OTHER ==
[2022-10-28] MEDS ORDERED: LIDOCAINE HCL 2% 100 MG/5 ML IJ ONE (11:50)
[2022-10-28] MEDS ORDERED: Depo-Medrol 40 MG/ML IM ONE (11:50)
[2022-10-28] MEDS ORDERED: Lactated Ringers 1,000 ML IV ONE (13:33)
[2022-10-28] MEDS ORDERED: DIPRIVAN 200 MG/20 ML IV ONE (14:06)
--- NOTE | 2022-10-28 14:56 | XRAY ---
15 seconds of fluoroscopy was used in surgery for a bilateral L4-S1 MBB.
--- NOTE | 2022-10-28 14:56 | XRAY ---
Indication: Bilateral L4-S1 MBB. Intraoperative fluoroscopy provided for 15 seconds. Single digital spot images submitted for interpretation demonstrates posterior needle tips projecting over the expected left and right L4-S1 nerve roots. Correlate with intraoperative findings/report.
== END 2022-10-28 14:37 | disposition home or self-care (01) ==
LOC: SDC-PAIN 11:49
PROVIDERS: ATTEND Psychiatry & Neurology Pain Medicine
DX: M47.816 Spondylosis without myelopathy or radiculopathy, lumbar region (principal); Z79.899 Other long term (current) drug therapy
CPT/HCPCS: 64493; 64494; 72020; 77002; J1030; J2704

== ENCOUNTER 2022-11-25 11:52 | Day surgery (SDC) | payer OTHER ==
[2022-11-25] MEDS ORDERED: Depo-Medrol 40 MG/ML IM ONE (11:53)
[2022-11-25] MEDS ORDERED: BUPIVACAINE 0.5% VIAL IJ ONE (11:53)
[2022-11-25] MEDS ORDERED: DIPRIVAN 200 MG/20 ML IV ONE (14:02)
[2022-11-25] MEDS ORDERED: Lactated Ringers 1,000 ML IV ONE (15:31)
--- NOTE | 2022-11-25 16:29 | XRAY ---
Indication: Bilateral L4-S1 MBB. Intraoperative fluoroscopy provided for 9 seconds. Single digital spot image submitted for interpretation demonstrates posterior needle tips projecting over the expected left and right L4-S1 nerve roots. Correlate with intraoperative findings/report.
--- NOTE | 2022-11-25 16:50 | XRAY ---
9 seconds of fluoroscopy was used in surgery for a bilateral L4-S1 MBB.
== END 2022-11-25 14:50 | disposition home or self-care (01) ==
LOC: SDC-PAIN 11:52
PROVIDERS: ATTEND Psychiatry & Neurology Pain Medicine
DX: M47.816 Spondylosis without myelopathy or radiculopathy, lumbar region (principal); Z79.899 Other long term (current) drug therapy
CPT/HCPCS: 64493; 64494; 72020; 77002; J1030; J2704

== ENCOUNTER 2022-12-16 14:56 | Day surgery (SDC) | payer OTHER ==
[2022-12-16] MEDS ORDERED: Depo-Medrol 40 MG/ML IM ONE (14:57)
[2022-12-16] MEDS ORDERED: BUPIVACAINE 0.5% VIAL IJ ONE (14:57)
[2022-12-16] MEDS ORDERED: LIDOCAINE HCL 1% 50 MG/5 ML VL PF IJ ONE (14:57)
[2022-12-16] MEDS ORDERED: Lactated Ringers 1,000 ML IV ONE (16:45)
[2022-12-16] MEDS ORDERED: DIPRIVAN 200 MG/20 ML IV ONE (17:03)
--- NOTE | 2022-12-17 08:41 | XRAY ---
Indication: Left L4-S1 RFA. Intraoperative fluoroscopy provided for 36 seconds. 5 digital spot images submitted for interpretation demonstrates posterior needle tips projecting over the expected left L4-S1 nerve roots. Correlate with intraoperative findings/report.
--- NOTE | 2022-12-17 09:56 | XRAY ---
36 seconds of fluoroscopy was used in surgery for a left L4-S1 RFA.
== END 2022-12-16 17:40 | disposition home or self-care (01) ==
LOC: SDC-PAIN 14:56
PROVIDERS: ATTEND Psychiatry & Neurology Pain Medicine
DX: M47.816 Spondylosis without myelopathy or radiculopathy, lumbar region (principal); Z79.899 Other long term (current) drug therapy
CPT/HCPCS: 64635; 64636; 72100; 77002; 99100; J1030; J2001; J2704

== ENCOUNTER 2022-12-23 13:30 | Day surgery (SDC) | payer OTHER ==
[2022-12-23] MEDS ORDERED: LIDOCAINE HCL 1% 50 MG/5 ML VL PF IJ ONE (13:31)
[2022-12-23] MEDS ORDERED: BUPIVACAINE 0.5% VIAL IJ ONE (13:31)
[2022-12-23] MEDS ORDERED: Depo-Medrol 40 MG/ML IM ONE (13:31)
[2022-12-23] MEDS ORDERED: DIPRIVAN 200 MG/20 ML IV ONE ×2 (15:44→16:07)
[2022-12-23] MEDS ORDERED: Lactated Ringers 1,000 ML IV ONE (17:33)
--- NOTE | 2022-12-23 19:35 | XRAY ---
Indication: Right L4-S1 RFA. Intraoperative fluoroscopy provided for 22 seconds. 3 digital spot images submitted for interpretation demonstrates posterior needle tips projecting over the expected right L4-S1 nerve roots. Correlate with intraoperative findings/report.
--- NOTE | 2022-12-24 08:42 | XRAY ---
22 seconds of fluoroscopy was used in surgery for a right L4-S1 RFA.
== END 2022-12-23 16:35 | disposition home or self-care (01) ==
LOC: SDC-PAIN 13:30
PROVIDERS: ATTEND Psychiatry & Neurology Pain Medicine
DX: M47.816 Spondylosis without myelopathy or radiculopathy, lumbar region (principal); Z79.899 Other long term (current) drug therapy
CPT/HCPCS: 64635; 64636; 72100; 77002; 99100; J1030; J2001; J2704

== ENCOUNTER 2023-12-02 08:54 | Day surgery (SDC) | payer OTHER ==
--- NOTE | 2023-11-30 14:56 | HP ---
DATE OF SURGERY: 12/02/2023 HISTORY OF PRESENT ILLNESS: The patient is a 78-year-old male presents with anemia. He said that his iron is low and anemic. The CT had done some scopes on him recently. He did have a bunch of polyps but he did not have an EGD at that time. He has been getting weak. He sees no blood in his stool. His grandfather had colon cancer. He was referred to us by the CT for double scope. PAST MEDICAL HISTORY: Hyperlipidemia. Hypertension. Thyroid. Gastroesophageal reflux disease. Asthma. 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 PAST SURGICAL HISTORY: None. ALLERGIES: LISINOPRIL. MORPHINE (NAUSEA/VOMITING). MEDICATIONS: Vitamin A, omeprazole, Albuterol, Tylenol, ibuprofen, hydrocodone, fluticasone, diltiazem, citalopram, Zyrtec, atorvastatin. FAMILY HISTORY: Colon cancer. SOCIAL HISTORY: Occasional alcohol. REVIEW OF SYSTEMS: CONSTITUTIONAL: Denies fever or chills. CHEST: Denies shortness of breath. CVS: Denies chest pain. ABDOMEN: Denies abdominal pain. PHYSICAL EXAMINATION: GENERAL: No acute distress. CHEST: Nonlabored. No shortness of breath. CVS: Regular rate and rhythm. ABDOMEN: Soft. IMPRESSION: Anemia. PLAN: EGD and colonoscopy with Dr. Mitchell Grewal. As dictated by Nathalie Gaxiola NP.
[2023-12-02] MEDS ORDERED: Lactated Ringers 1,000 ML IV ONE (09:22)
[2023-12-02] MEDS: Lactated Ringers 1,000 ML IV SCH (09:42)
[2023-12-02] MEDS ORDERED: DIPRIVAN 200 MG/20 ML IV ONE (10:46)
--- NOTE | 2023-12-02 11:17 | OP ---
SURGERY DATE/TIME: 12/02/2023 1059 PREOPERATIVE DIAGNOSIS: Anemia. POSTOPERATIVE DIAGNOSES: The patient has a little wisp of chronic antritis but no signs of bleeding today. PROCEDURES: 1) EGD. 2) Colonoscopy complete to cecum. SURGEON: Mitchell Grewal M.D. ANESTHESIA: MAC. COMPLICATIONS: None. CONDITION: Stable. INDICATION: The patient had colonoscopy with multiple polyps but he did not have an EGD. He has history of substantial anemia GI. DESCRIPTION OF PROCEDURE: He is taken to endoscopy. Upper scope performed. Pharyngoesophageal junction normal. Esophagus normal. Gastroesophageal junction normal. Fundus, body normal. There is a little wisp of chronic antritis. Pylorus normal. Duodenal bulb normal. Second portion normal. No blood on the exam at all. Scope withdrawn and looped upon itself. No hiatal hernia. Scope withdrawn.
[2023-12-02 11:36] VITALS: RESP 18; TEMP 98.1; O2SAT 97
[2023-12-02 11:49] VITALS: BP 133/72; PULSE 61
== END 2023-12-02 12:04 | disposition home or self-care (01) ==
LOC: SDC 08:54
PROVIDERS: ATTEND Surgery
DX: K29.50 Unspecified chronic gastritis without bleeding (principal); D64.9 Anemia, unspecified; Z80.0 Family history of malignant neoplasm of digestive organs
CPT/HCPCS: 99100; J2704

== ENCOUNTER 2024-07-26 14:07 | Day surgery (SDC) | payer OTHER ==
[2024-07-26] MEDS ORDERED: LIDOCAINE HCL 1% AMPUL 5 ML IJ ONE (14:08)
[2024-07-26] MEDS ORDERED: Depo-Medrol 40 MG/ML IM ONE (14:08)
[2024-07-26] MEDS ORDERED: BUPIVACAINE 0.5% VIAL IJ ONE (14:08)
[2024-07-26] MEDS ORDERED: DIPRIVAN 200 MG/20 ML IV ONE (16:33)
--- NOTE | 2024-07-26 17:17 | XRAY ---
Indication: Right L4-S1 RFA. Intraoperative fluoroscopy provided for 19 second. 3 digital spot image submitted for interpretation demonstrates posterior needle tips projecting over expected right L4-S1 nerve roots. Correlate with intraoperative findings/report.
--- NOTE | 2024-07-27 09:10 | XRAY ---
19 seconds of fluoroscopy was used in surgery for a right L4-S1 RFA.
== END 2024-07-26 17:05 ==
LOC: SDC-PAIN 14:07
PROVIDERS: ATTEND Psychiatry & Neurology Pain Medicine
DX: M47.816 Spondylosis without myelopathy or radiculopathy, lumbar region (principal)
CPT/HCPCS: 64635; 64636; 72100; 77002; 99100; J2704

== ENCOUNTER 2024-07-27 13:07 | Day surgery (SDC) | payer OTHER ==
[2024-07-27] MEDS ORDERED: BUPIVACAINE 0.5% VIAL IJ ONE (13:08)
[2024-07-27] MEDS ORDERED: Depo-Medrol 40 MG/ML IM ONE (13:08)
[2024-07-27] MEDS ORDERED: LIDOCAINE HCL 1% AMPUL 5 ML IJ ONE (13:08)
[2024-07-27] MEDS ORDERED: DIPRIVAN 200 MG/20 ML IV ONE (14:38)
--- NOTE | 2024-07-27 21:44 | XRAY ---
Indication: Left L4-S1 RFA. Intraoperative fluoroscopy provided for 39 seconds. 4 digital spot images submitted for interpretation demonstrates posterior needle tips projecting over expected left L4-S1 nerve roots. Correlate with intraoperative findings/report.
--- NOTE | 2024-07-27 21:58 | XRAY ---
39 seconds of fluoroscopy was used in surgery for a left L4-S1 RFA.
== END 2024-07-27 15:15 | disposition home or self-care (01) ==
LOC: SDC-PAIN 13:07
PROVIDERS: ATTEND Psychiatry & Neurology Pain Medicine
DX: M47.816 Spondylosis without myelopathy or radiculopathy, lumbar region (principal)
CPT/HCPCS: 64635; 64636; 72100; 77002; 99100; J2704

== ENCOUNTER 2025-01-03 11:53 | Day surgery (SDC) | payer OTHER ==
[2025-01-03] MEDS ORDERED: Depo-Medrol 40 MG/ML IM ONE (11:54)
[2025-01-03] MEDS ORDERED: BUPIVACAINE 0.5% VIAL IJ ONE (11:54)
[2025-01-03] MEDS ORDERED: propofoL IV ONE (14:22)
[2025-01-03] MEDS ORDERED: Lactated Ringers 1,000 ML IV ONE (16:14)
--- NOTE | 2025-01-03 16:53 | XRAY ---
Indication: Right SI joint injection. Intraoperative fluoroscopy provided for 31 seconds. Single digital spot image submitted for interpretation demonstrates posterior needle tip projecting over right SI joint. Small amount of contrast injected for needle tip placement. Correlate with intraoperative findings/report.
--- NOTE | 2025-01-03 17:25 | XRAY ---
31 seconds of fluoroscopy used in surgery for a right sacroiliac joint injection.
== END 2025-01-03 14:57 | disposition home or self-care (01) ==
LOC: SDC-PAIN 11:53
PROVIDERS: ATTEND Psychiatry & Neurology Pain Medicine
DX: M46.1 Sacroiliitis, not elsewhere classified (principal)
CPT/HCPCS: 27096; 72170; 99100; J2704; Q9966